=== PATIENT | male | born 1940 | race Caucasian/White ===

== ENCOUNTER 2025-01-14 22:46 | Emergency (ER) | payer OTHER ==
[2025-01-14] MEDS ORDERED: ASPIRIN 81 MG CHEWABLE TABLET ONE (23:27)
[2025-01-15 00:17] LABS: Absolute Basophils 0.1 K/uL (0-0.5); Absolute Eosinophils 0.2 K/uL (0-0.5); Absolute Lymphocytes (CBC) 1.8 K/uL (0.7-4.9); Absolute Monocytes 0.8 K/uL (0.1-1.3); Absolute Neutrophil 6.6 K/uL (1.8-8.0); Basophils % 0.8 % (0-1.3); Eosinophils % 1.6 % (0-4.4); Hematocrit 37.3 % (39.6-49.0); Hemoglobin 12.4 g/dL (13.6-17.9); Lymphocytes % 19.4 % (15.3-44.8); MCH 31.5 pg (27.0-35.0); MCHC 33.3 g/dL (32.0-36.0); MCV 94.4 fL (80-100); MPV 7.8 fL (7.6-11.3); Monocytes % 8.5 % (3.3-12.3); Neutrophils % 69.7 % (41.7-73.7); Nucleated Red Blood Cells % 0.1 % (0-0); Platelets 266 thou/uL (152-406); RBC Red Blood Cell Count 3.95 M/uL (4.33-5.43); Red Cell Distribution Width 15.6 % (12.1-15.2)
[2025-01-15 00:35] LABS: ALT/SGPT 21 U/L (16-61); AST/SGOT 17 U/L (15-37); Albumin 3.1 g/dL (3.4-5.0); Albumin/Globulin Ratio 0.9 (1.1-1.8); Alkaline Phosphatase 145 U/L (45-117); Anion Gap 8.5 mEq/L (5.0-15.0); BUN Blood Urea Nitrogen 38 mg/dL (7-18); Bicarbonate 31 mEq/L (21-32); Bilirubin Direct < 0.2 mg/dL (0-0.2); Bilirubin Indirect, Calculated 0.1 mg/dL (0.2-0.8); Bilirubin Total 0.3 mg/dL (0.2-1.0); Globulin 3.3 g/dL (2.3-3.5); Glomerular Filtration Rate 37 ml/min (=/>90); Glucose Level 330 mg/dL (74-106); Magnesium 1.7 mg/dL (1.6-2.4); NT PRO-BNP 1591 pg/mL (<450); Potassium 4.5 mEq/L (3.5-5.1); Protein, Total 6.4 g/dL (6.4-8.2); Sodium Level 138 mEq/L (136-145)
[2025-01-15 00:36] LABS: Troponin High Sensitivity 193.8 pg/mL (<58.9)
[2025-01-15] MEDS ORDERED: ALPRAZOLAM 0.25 MG TABLET PO PRN (00:38)
[2025-01-15] MEDS ORDERED: NITROGLYCERIN 0.4 MG/TAB SL PRN (00:38)
[2025-01-15] MEDS ORDERED: ACETAMINOPHEN 500 MG TAB PO PRN (00:38)
[2025-01-15] MEDS ORDERED: MORPHINE 4 MG/ML SYR IV PRN (00:38)
--- NOTE | 2025-01-15 00:44 | P.HP ---
Patient History Date of Service: 01/15/25 History of Present Illness: error Physical Examination - Studies Laboratory Data (last 24 hrs) 01/14/25 01/14/25 23:55 23:55 WBC 9.50 Hgb 12.4 L Hct 37.3 L Plt Count 266 Sodium 138 Potassium 4.5 BUN 38 H Creatinine 1.80 H Glucose 330 H Magnesium 1.7 Total Bilirubin 0.3 AST 17 ALT 21 Alkaline Phosphatase 145 H Assessment and Plan - Advance Directives Does patient have a Living Will: No Does patient have a Durable POA for Healthcare: No
--- NOTE | 2025-01-15 00:46 | ER ---
Nurse's Notes [facility] Name: Jose Garcia Jr Age: 84 yrs Sex: Male : 1940 Arrival Date: 01/14/2025 Time: 22:46 Bed 2 Private MD: Diagnosis: NSTEMI;Chronic kidney disease, unspecified;Type 2 diabetes mellitus with hyperglycemia;Presence of cardiac pacemaker Presentation: 01/14 23:05 Chief complaint: Patient states: chest pain that radiates to left shoulder an left side vc1 of jaw. Coronavirus screen: Client denies travel out of the [place] in the last 14 days. At this time, the client does not indicate any symptoms associated with coronavirus-19. Ebola Screen: Patient negative for fever greater than or equal to 101.5 degrees Fahrenheit, and additional compatible Ebola Virus Disease symptoms Patient denies exposure to infectious person. Patient denies travel to an Ebola-affected area in the 21 days before illness onset. No symptoms or risks identified at this time. Initial Sepsis Screen: Does the patient meet any 2 criteria? No. Patient's initial sepsis screen is negative. Does the patient have a suspected source of infection? No. Patient's initial sepsis screen is negative. Risk Assessment: Do you want to hurt yourself or someone else? Patient reports no desire to harm self or others. Onset of symptoms was 2100. Care prior to arrival: Medication(s) given: Nitroglycerin, 0.4 mg SL x 1. 23:05 Method Of Arrival: Ambulatory vc1 23:05 Acuity: CARLENE 3 vc1 Historical: - Allergies: 23:02 No Known Allergies; vc1 - PMHx: 23:02 Chronic obstructive lung disease; Hypertensive disorder; Diabetes mellitus; emphysemea; vc1 Asthma; high cholesterol; - PSHx: 23:02 Pace maker; cardiac stents; vc1 - Immunization history:: Client reports receiving the 2nd dose of the Covid vaccine, Flu vaccine is up to date. - Infectious Disease History:: Denies. - Social history:: Smoking status: Patient denies any tobacco usage or history of. Screenin:00 [facility] ED Fall Risk Assessment (Adult) History of falling in the last 3 months, ha1 including since admission No falls in past 3 months (0 pts) Confusion or Disorientation No (0 pts) Intoxicated or Sedated No (0 pts) Impaired Gait No (0 pts) Mobility Assist Device Used No (0 pt) Altered Elimination No (0 pt) Score/Fall Risk Level 0 - 2 = Low Risk Oriented to surroundings, Maintained a safe environment, Educated pt \T\ family on fall prevention, incl call for assistance when getting out of bed, Hourly rounding (assess needs \T\ fall precautionary measures) done. Abuse screen: Denies threats or abuse. Denies injuries from another. Nutritional screening: No deficits noted. Tuberculosis screening: No symptoms or risk factors identified. Assessment: 23:03 General: Appears uncomfortable, Behavior is calm, cooperative. Pain: Complains of pain ha1 in chest Pain radiates to left jaw Pain currently is 8 out of 10 on a pain scale. Quality of pain is described as aching, pressure, Pain began suddenly. Neuro: Level of Consciousness is awake, alert, obeys commands, Oriented to person, place, time, situation. Cardiovascular: Reports chest pain, Heart tones present Capillary refill < 3 seconds Patient's skin is warm and dry. Respiratory: Airway is patent Respiratory effort is even, unlabored, Respiratory pattern is regular, symmetrical. GI: No signs and/or symptoms were reported involving the gastrointestinal system. Abdomen is round obese. : No signs and/or symptoms were reported regarding the genitourinary system. Musculoskeletal: Circulation, motion, and sensation intact. 01/15 00:00 Reassessment: Patient and/or family updated on plan of care and expected duration. Pain ha1 level reassessed. Patient is alert, oriented x 3, equal unlabored respirations, skin warm/dry/pink. 01:00 Reassessment: Patient and/or family updated on plan of care and expected duration. Pain ha1 level reassessed. Patient is alert, oriented x 3, equal unlabored respirations, skin warm/dry/pink. 02:03 Reassessment: Patient and/or family updated on plan of care and expected duration. Pain ha1 level reassessed. Patient is alert, oriented x 3, equal unlabored respirations, skin warm/dry/pink. Patient states feeling better. Patient states symptoms have improved. 02:26 Reassessment: report given to YUMIKO Goldman. ha1 Vital Signs: 01/14 23:05 BP 119 / 76; Pulse 113; Resp 18; Temp 98.7; Pulse Ox 93% ; Weight 108.86 kg; Height 5 vc1 ft. 10 in. ; 01/15 01:00 BP 115 / 75; Pulse 102; Resp 18 S; Pulse Ox 95% on R/A; ha1 02:04 BP 158 / 90; Pulse 116; Resp 18 S; Pulse Ox 94% on R/A; ha1 01/14 23:05 Body Mass Index 34.44 (108.86 kg, 177.8 cm) vc1 ED Course: 01/14 22:49 Patient arrived in ED. gm2 22:52 [facility] kb 22:52 Les Mejias MD is Attending Physician. kb 22:55 Provided Education on: plan of care . Client placed on continuous cardiac and pulse ha1 oximetry monitoring. NIBP monitoring applied. athletic monitor on. 22:55 Patient has correct armband on for positive identification. Placed in gown. Bed in low ha1 position. Call light in reach. Side rails up X 1. Adult w/ patient. 23:07 Triage completed. vc1 23:07 Arm band placed on right wrist. vc1 23:55 XRAY Chest (1 view) In Process Unspecified. EDMS 01/15 00:00 Patient transferred, IV remains in place. Oxygen administration via nasal cannula \T\ ha1 2L/min. 01:06 initiated transfer with Carito \\ [facility]. kmf 01:59 pt was accepted to [facility] . Accepting Katelin Hillman \T\0123. Accepting admin km Carito Christianson \T\ 0123. pt will go to 4th floor bed A403. Number for nurse to nurse report [phone]. 02:06 Idania Ge, RN is Primary Nurse. ha1 02:30 No provider procedures requiring assistance completed. ha1 Administered Medications: 01/14 23:30 Drug: Aspirin PO Chewable Tablet 324 mg PO once; 81 mg tablets x 4 Route: PO; ha1 01/15 01:32 Drug: Heparin (NM-Bolus No thrombolytic) - HEParin IVP 60 units/kg IVP once; Max 5000 ha1 units {Co-Signature: vc1 (Shanda Wood RN).} Route: IVP; Site: right antecubital; 01:32 Drug: Heparin (NM Drip) 12 units/kg/[place] - ([place] [address] units, D5W IV 500 ml) IV at ha1 calculated rate Per protocol; Max initial rate 1000 units/hr {Co-Signature: 1 (Shanda Wood RN).} Route: IV; Rate: 1000 units/hr; Site: right antecubital; 01:32 Not Given (Patient Refused): [id number] mg PO once ha1 02:19 Drug: Insulin Regular Human IVP 7 units IVP once {Co-Signature: [email or web address] (Davis Brown RN).} Route: IVP; Site: left forearm; 02:19 Not Given (Physician Discretion): insulin [id number] units Sub-Q once ha1 02:19 Drug: Tessalon Perle PO 200 mg PO once Route: PO; ha1 02:30 Follow up: Response: No adverse reaction; Marked relief of symptoms ha1 02:20 Drug: Magnesium Sulfate IVPB 1 grams IVPB once over 1 hrs Route: IVPB; Infused Over: 1 ha1 hrs; Site: left forearm; Medication: 02:30 VIS not applicable for this client. ha1 Outcome: 00:46 ER care complete, transfer ordered by MD. valentino 02:30 Condition: stable ha1 02:30 Transferred by ground EMS Transfer form completed. X-rays sent w/ patient. Note: [address] [employer] [address] 02:30 Instructed on the need for transfer, Demonstrated understanding of instructions, 02:30 Patient left the ED. ha1 Signatures: Dispatcher [employer] EDMS Lisa Jha, SENIOR MARKETING ANALYST-C SENIOR MARKETING ANALYST-Ckb Shanda Wood RN RN vc1 Idania Ge RN RN ha1 Joann Baker [facility] Esther Pelayo [facility] Shanda Wood RN vc1 Davis Brown RN jb4 Corrections: (The following items were deleted from the chart) 02:50 02:40 Patient left the ED. vc1 ha1
--- NOTE | 2025-01-15 00:46 | EDPHYS ---
Physician Documentation [facility] Name: Jose Garcai Jr Age: 84 yrs Sex: Male : 1940 Arrival Date: 01/14/2025 Time: 22:46 Bed 2 Private MD: ED Physician Les Mejias HPI: 01/14 23:55 This 84 yrs old Male presents to ER via Ambulatory with complaints of Chest Pain, Arm kb Pain, Jaw Pain. 23:55 Patient is a 84-year-old male who presents for chest pain, left jaw pain and left upper kb arm pain. Patient states he woke up with the pain at 2100 this evening. States he checked his blood pressure and it was 180/123. Patient took a nitro that was previously prescribed to him, his chest pain resolved and his blood pressure decreased. States he currently has no pain.. Historical: - Allergies: 23:02 No Known Allergies; vc1 - PMHx: 23:02 Chronic obstructive lung disease; Hypertensive disorder; Diabetes mellitus; emphysemea; vc1 Asthma; high cholesterol; - PSHx: 23:02 Pace maker; cardiac stents; vc1 - Immunization history:: Client reports receiving the 2nd dose of the Covid vaccine, Flu vaccine is up to date. - Infectious Disease History:: Denies. - Social history:: Smoking status: Patient denies any tobacco usage or history of. ROS: 23:53 Constitutional: As per HPI kb Exam: 23:53 Constitutional: This is a well developed, well nourished patient who is awake, alert, kb and in no acute distress. Head/Face: Normocephalic, atraumatic. ENT: Moist Mucous membranes Cardiovascular: Regular rate Respiratory: Respirations even and unlabored. No increased work of breathing. Talking in full sentences Abdomen/GI: Soft, non-tender. No distention Skin: Warm, dry with normal turgor. Normal color. MS/ Extremity: Pulses equal, no cyanosis. Neurovascular intact. Full, normal range of motion. Neuro: Awake and alert, GCS 15, oriented to person, place, time, and situation. 23:55 ECG was reviewed by the Attending Physician. kb Vital Signs: 23:05 BP 119 / 76; Pulse 113; Resp 18; Temp 98.7; Pulse Ox 93% ; Weight 108.86 kg; Height 5 vc1 ft. 10 in. ; 01/15 01:00 BP 115 / 75; Pulse 102; Resp 18 S; Pulse Ox 95% on R/A; ha1 02:04 BP 158 / 90; Pulse 116; Resp 18 S; Pulse Ox 94% on R/A; ha1 01/14 23:05 Body Mass Index 34.44 (108.86 kg, 177.8 cm) vc1 MDM: 01/14 22:52 Medical Screening Exam initiated kb 23:53 Differential diagnosis: Arrhythmia, NH, COPD. Data reviewed: vital signs, nurses notes. kb Consideration of Admission/Observation Escalation of care including admission/observation considered. pt will be transferred. 01/15 00:44 Management of patient was discussed with the following: Billing Adjudicator: Dr Snell requests kb transfer. Historians other than the Patient: Spouse/Significant Other: spouse. Counseling: I had a detailed discussion with the patient and/or guardian regarding the historical points, exam findings, and any diagnostic results supporting the discharge/admit diagnosis, lab results, radiology results, the need to transfer to another facility, for higher level of care. 01/14 22:53 Order name: Basic Metabolic Panel; Complete Time: 00:37 kb 01/14 22:53 Order name: CBC with Diff; Complete Time: 00:22 kb 01/14 22:53 Order name: LFT's; Complete Time: 00:37 kb 01/14 22:53 Order name: Magnesium; Complete Time: 00:37 kb 01/14 22:53 Order name: NT PRO-BNP; Complete Time: 00:37 kb 01/14 22:53 Order name: PT-INR 01/14 22:53 Order name: Troponin HS; Complete Time: 00:37 kb 01/15 00:43 Order name: Troponin High Sensitivity EDMS 01/15 01:13 Order name: PTT, Activated Partial Thromb EDMS 01/14 22:53 Order name: XRAY Chest (1 view) kb 01/14 22:53 Order name: Cardiac monitoring; Complete Time: 23:16 kb 01/14 22:53 Order name: EKG - Nurse/Tech; Complete Time: 23:16 kb 01/14 22:53 Order name: IV Saline Lock; Complete Time: 23:16 kb 01/14 22:53 Order name: Labs collected and sent; Complete Time: 23:16 kb 01/14 22:53 Order name: O2 Per Protocol; Complete Time: 23:16 kb 01/14 22:53 Order name: O2 Sat Monitoring; Complete Time: 23:16 kb EC/15 23:55 Rate is 111 beats/min. Rhythm is regular. QRS Kell is Normal. OR interval is normal at kb 170 msec. QRS interval is normal at 150 msec. QT interval is prolonged at 505 msec. Administered Medications: 23:30 Drug: Aspirin PO Chewable Tablet 324 mg PO once; 81 mg tablets x 4 Route: PO; ha1 01/15 01:32 Drug: Heparin (NH-Bolus No thrombolytic) - HEParin IVP 60 units/kg IVP once; Max 5000 ha1 units {Co-Signature: vc1 (Shanda Wood RN).} Route: IVP; Site: right antecubital; 01:32 Drug: Heparin (NH Drip) 12 units/kg/[place] - ([place] [address] units, D5W IV 500 ml) IV at ha1 calculated rate Per protocol; Max initial rate 1000 units/hr {Co-Signature: vc1 (Shanda Wood RN).} Route: IV; Rate: 1000 units/hr; Site: right antecubital; 01:32 Not Given (Patient Refused): [id number] mg PO once ha1 02:19 Drug: Insulin Regular Human IVP 7 units IVP once {Co-Signature: jb4 (Davis Brown RN).} Route: IVP; Site: left forearm; 02:19 Not Given (Physician Discretion): insulin [id number] units Sub-Q once ha1 02:19 Drug: Tessalon Perle PO 200 mg PO once Route: PO; ha1 02:30 Follow up: Response: No adverse reaction; Marked relief of symptoms ha1 02:20 Drug: Magnesium Sulfate IVPB 1 grams IVPB once over 1 hrs Route: IVPB; Infused Over: 1 ha1 hrs; Site: left forearm; Disposition Summary: 01/15/25 00:46 Transfer Ordered Notes: Transfer Location: [facility] kb Reason: Higher level of care kb Condition: Stable kb Problem: new kb Symptoms: are unchanged kb Accepting Physician: (01/15/25 02:40) vc1 Diagnosis - NSTEMI kb - Chronic kidney disease, unspecified derek - Type 2 diabetes mellitus with hyperglycemia derek - Presence of cardiac pacemaker derek Forms: - Medication Reconciliation Form kb - SBAR form chicho Signatures: Dispatcher [employer] Abhijeet Lisa, TIP FIXER-Colt CAT-Les Massey MD MD cha Calcote, Vanessa RN RN vc1 Idania Ge RN RN ha1 Shanda Wood RN vc1 Davis Brown RN jb4 Corrections: (The following items were deleted from the chart) 01/14 22:53 22:53 Chest Single View+RAD.RAD.BRZ ordered. [facility] 01/15 00:45 04 23:53 Consideration of Admission/Observation Patient was admitted/placed on kb observation. Escalation of care including admission/observation considered. 01/15 00:45 01/14 23:53 Counseling: I had a detailed discussion with the patient and/or guardian chicho regarding the historical points, exam findings, and any diagnostic results supporting the discharge/admit diagnosis, lab results, radiology results, the need for further work-up and treatment in the hospital, chicho 01/15 00:45 00:32 Management of patient was discussed with the following: Hospitalist: Dr Emory valentino accepts pt for admission. chicho 01:07 PTT, ACTIVATED+COAG.LAB.BRZ ordered. [facility] : 00:43 CONS Physician Consult ordered. [facility] 00:43 Basic Metabolic Panel ordered. [facility] : 00:43 Basic Metabolic Panel ordered. [facility] : 00:43 Basic Metabolic Panel ordered. [facility] 00:43 Basic Metabolic Panel ordered. [facility] : 00:43 CBC with Automated Diff ordered. [facility] : 00:43 CBC with Automated Diff ordered. [facility] 00:43 CBC with Automated Diff ordered. [facility] 00:43 CBC with Automated Diff ordered. [facility] 00:43 Troponin High Sensitivity ordered. [facility] 01: 00:46 Dr chicho reed 02:40 01:22 Dr reed vc1
[2025-01-15 00:59] LABS: PT Prothrombin Time 11.7 SECONDS (10-13.0); Protime INR 1.03
[2025-01-15] MEDS ORDERED: CLOPIDOGREL 75 MG TABLET ONE (01:12)
[2025-01-15] MEDS ORDERED: HEPARIN 5000 UNIT/ML 1 ML VIAL ONE (01:12)
[2025-01-15] MEDS ORDERED: HEPARIN/D5W 25,000 UNIT/500 ML BAG IV ONE (01:12)
[2025-01-15 01:18] LABS: PTT, Activated Partial Thromb 27.5 SECONDS (27.2-37.4)
[2025-01-15] MEDS ORDERED: INSULIN REGULAR (HUMAN) 100 UNIT/ML ONE (02:11)
[2025-01-15] MEDS ORDERED: BENZONATATE 100 MG CAP PO ONE (02:11)
[2025-01-15] MEDS ORDERED: MAGNESIUM SULFATE 1 gm IVPB 1 GM/100 ML BAG IV ONE (02:12)
[2025-01-15 02:43] VITALS: TEMP 98.7
[2025-01-15 02:46] VITALS: BP 158/90; O2SAT 94
--- NOTE | 2025-01-15 05:51 | RAD REPORT ---
EXAM: XR Chest, 1 View CLINICAL HISTORY: The patient is 84 years old and is Male; CHEST PAIN TECHNIQUE: Frontal view of the chest. COMPARISON: No relevant prior studies available. FINDINGS: LUNGS: Unremarkable. No consolidation. PLEURAL SPACE: Unremarkable. No pneumothorax. HEART: Unremarkable. No cardiomegaly. MEDIASTINUM: Unremarkable. Normal mediastinal contour. BONES/JOINTS: Multilevel degenerative change of the spine is present. No acute fracture. VASCULATURE: Atherosclerosis of the aorta is present. TUBES, LINES AND DEVICES: Left-sided pacemaker is noted. UPPER ABDOMEN: Unremarkable as visualized. IMPRESSION: No acute cardiopulmonary process. Electronically signed by: Carlotta Jackson MD 01/15/2025 02:15 AM CDT RP Due to temporary technical issues with the PACS/[employer] reporting system, reports are being brendan d by the in-house radiologist without review as a courtesy to ensure prompt reporting the interpreting radiologist is fully responsible for the content of the report. Transcribed Date/Time: 01/15/2025 5:51 AM
[2025-01-15] MEDS ORDERED: ASPIRIN 325 MG TAB PO SCH (09:00)
[2025-01-15] MEDS ORDERED: METOPROLOL TAR 50 MG TAB PO SCH (09:00)
== END 2025-01-15 02:40 | disposition short-term general hospital (02) ==
LOC: ER 22:46
DX: I21.4 Non-ST elevation (NSTEMI) myocardial infarction (principal); E11.22 Type 2 diabetes mellitus with diabetic chronic kidney disease; E11.65 Type 2 diabetes mellitus with hyperglycemia; I12.9 Hypertensive chronic kidney disease with stage 1 through stage 4 chronic kidney disease, or unspecified chronic kidney disease; N18.9 Chronic kidney disease, unspecified; Z95.0 Presence of cardiac pacemaker; Z95.818 Presence of other cardiac implants and grafts; J44.9 Chronic obstructive pulmonary disease, unspecified; E78.00 Pure hypercholesterolemia, unspecified
CPT/HCPCS: 93005; 85025; 80048; 36415; 83735; 85610; 80076; 85730; 84484; 83880; 71045; J1644; J3475; J1815

== ENCOUNTER 2025-02-07 16:38 | Inpatient (IN) | payer OTHER ==
[2025-02-08] MEDS: INSULIN REGULAR (HUMAN) 100 UNIT/ML SQ SCH (16:30)
[2025-02-08] MEDS ORDERED: INSULIN LISPRO 100 UNIT/1 ML SQ SCH (17:00)
[2025-02-08] MEDS: PIPER TAZO 3.375 GM in NA CHLORIDE 0.9% 100 ML IV SCH (17:46)
[2025-02-08 18:52] LABS: Specific Gravity 1.014 (1.005-1.030); Urine Bilirubin NEGATIVE (Negative); Urine Blood Negative (Negative); Urine Clarity Clear (Clear); Urine Color Light-Yellow (Yellow); Urine Glucose NEGATIVE (Negative); Urine Ketones NEGATIVE (Negative); Urine Microscopic Reflex YN NO UMIC; Urine Nitrite NEGATIVE (Negative); Urine Protein NEGATIVE (Negative); Urine Urobilinogen Normal (Normal); Urine pH 5.5 (5.0-7.0)
[2025-02-08] MEDS: ALBUTEROL 2.5 MG/3 ML NEB SOL NEB SCH (19:00)
[2025-02-08] MEDS: IPRATROPIUM BROM 0.5MG/2.5ML NEB SCH (19:00)
[2025-02-08] MEDS: POLYETHYL GLY 3350 17 GM/DOSE PO SCH (20:00)
[2025-02-08] MEDS: ATORVASTATIN 40 MG TAB PO SCH (20:08)
[2025-02-08] MEDS: GABAPENTIN 300 MG CAP PO SCH (20:08)
[2025-02-08] MEDS: APIXABAN 2.5 MG TABLET PO SCH (20:09)
[2025-02-08] MEDS: INSULIN GLARGINE 100 UNIT/ML SQ SCH (20:09)
[2025-02-08] MEDS: ALBUTEROL 2.5 MG/3 ML NEB SOL NEB PRN (21:48)
[2025-02-08] MEDS: IPRATROPIUM BROM 0.5MG/2.5ML NEB PRN (21:49)
[2025-02-09 05:50] LABS: Absolute Basophils 0.1 K/uL (0-0.5); Absolute Eosinophils 0.4 K/uL (0-0.5); Absolute Lymphocytes (CBC) 1.9 K/uL (0.7-4.9); Absolute Neutrophil 4.3 K/uL (1.8-8.0); Basophils % 0.7 % (0-1.3); Hematocrit 26.6 % (39.6-49.0); Hemoglobin 8.8 g/dL (13.6-17.9); Lymphocytes % 25.3 % (15.3-44.8); MCH 30.6 pg (27.0-35.0); MCV 92.6 fL (80-100); MPV 6.9 fL (7.6-11.3); Monocytes % 13.2 % (3.3-12.3); Neutrophils % 55.8 % (41.7-73.7); Platelets 490 thou/uL (152-406); RBC Red Blood Cell Count 2.88 M/uL (4.33-5.43); Red Cell Distribution Width 14.6 % (12.1-15.2)
[2025-02-09] MEDS ORDERED: METOPROLOL XL 50 MG TAB PO SCH (06:00)
[2025-02-09 06:09] LABS: Anion Gap 6.2 mEq/L (5.0-15.0); Magnesium 1.9 mg/dL (1.6-2.4); Potassium 3.2 mEq/L (3.5-5.1); Prealbumin 10.7 mg/dL (20-40)
[2025-02-09] MEDS: PANTOPRAZOLE 40MG TABLET PO SCH (07:09)
--- NOTE | 2025-02-09 07:10 | RAD REPORT ---
EXAMINATION: ONE VIEW CHEST XR CLINICAL INDICATION: r/o aspiration pneumonia TECHNIQUE: Frontal chest projection is submitted. Examination is limited by patient positioning and t echnique. COMPARISON: 01/14/2025 FINDINGS: Moderate patchy airspace opacity is present left lower lung, likely pneumonia. The heart is moderatel y enlarged in size. Sternotomy wires. Pacer device. IMPRESSION: Moderate left lower lobe infiltrate/pneumonia.
[2025-02-09] MEDS: IPRATROPIUM BROM 0.5MG/2.5ML NEB SCH (08:00)
[2025-02-09] MEDS: ALBUTEROL 2.5 MG/3 ML NEB SOL NEB SCH (08:00)
[2025-02-09] MEDS: FUROSEMIDE 40 MG TABLET PO SCH (08:51)
[2025-02-09] MEDS: predniSONE 10 MG TAB PO SCH (08:52)
[2025-02-09] MEDS: METOPROLOL XL 50 MG TAB PO SCH (08:52)
[2025-02-09] MEDS: ASPIRIN 81 MG CHEWABLE TABLET PO SCH (08:53)
[2025-02-09] MEDS: TAMSULOSIN 0.4 MG SR CAP PO SCH (08:54)
[2025-02-09] MEDS: MONTELUKAST 10 MG TAB PO SCH (08:54)
[2025-02-09] MEDS: POTASSIUM 25 MEQ EFFERV TAB PO ONE ×2 (09:21→11:59)
--- NOTE | 2025-02-09 12:19 | P.HP ---
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 He had NSTEMI back in December of this year and was found to have multivessel CAD, transferred to [facility] for CABG evaluation. Now s/p CABG x 2 ALTAMIRANO-LAD and reverse SVG-PDA by Dr. Dior on 01/20/2025. Post op course was complicated by hypoxia, AMS, MICHAEL, delirium, episode of somnolence thought to be 2/2 combined effects of seroquel and oxycodone, MAT, and L moderate pleural effusion likely 2/2 ACB. He underwent L thoracentesis for pleural effusion on 02/05 and 1.3L removed by IR. Studies c/w exudate. Overall pleural studies were consistent with a post- thoracic surgery pleural effusion. His respiratory and cardiac status improved and stabilized over the course of his stay but still with cognitive impairment, physical deconditioning, debility. Patient was evaluated by PT and it was determined that he is able to tolerate therapy well and as a result of his functional decline and comorbid conditions, he would make a great candidate for aggressive inpatient rehabilitation where he can receive physical, occupational, and if need be speech therapy to help him return to his prior level of functioning and reduce risk of rehospitalization. He is now admitted to the unit for such therapy to help him reduce risk of rehospitalization and then return to prior level of functioning. Allergies No Known Allergies Allergy (Verified 02/08/25 16:07) Home Medications: Albuterol Inhaler [Ventolin Inhaler] 2 puff IH Q4H PRN 02/09/25 Albuterol Neb [Proventil 0.083% Neb Soln] 2.5 mg IH QID 02/09/25 Apixaban [Eliquis] 2.5 mg PO BID 02/09/25 Aspirin Chewable [Aspirin Chewable*] 81 mg PO DAILY 02/09/25 Atorvastatin Calcium [Lipitor] 40 mg PO BEDTIME 02/09/25 Furosemide [Lasix] 40 mg PO DAILY 02/09/25 Gabapentin [Neurontin] 300 mg PO TID 02/09/25 Insulin Glargine,Hum.rec.anlog [Semglee] 20 unit SQ BEDTIME 02/09/25 Ipratropium Neb [Atrovent Neb] 0.5 mg IH QID 02/09/25 Metoprolol Succinate [Toprol Xl] 50 mg PO DAILY 02/09/25 Montelukast [Singulair] 10 mg PO DAILY 02/09/25 Pantoprazole [Protonix Tab] 40 mg PO DAILY WITH BREAKFAST 02/09/25 Polyethyl Gly 3350 [Glycolax] 17 gm PO BID 02/09/25 Tamsulosin [Flomax] 0.4 mg PO BEDTIME 02/09/25 predniSONE [Deltasone] 10 mg PO DAILY 02/09/25 - Past Medical/Surgical History Has patient received pneumonia vaccine in the past: Yes Diabetic: Yes Past Medical History: Patient denies medical history -: Multivessel CAD s/p CABG x 2 ALTAMIRANO-LAD and reverse SVG-PDA 01/20/2025 -: COPD -: CHF (40-45%EF) -: peptic ulcer disease -: sarcoidosis (1.5-2L NC at home) -: Sick sinus syndrome s/p pacemaker -: BPH -: s/p CABG x 2 ALTAMIRANO-LAD and reverse SVG-PDA 01/20/2025 -: Pacemaker - Social History Smoking Status: Never smoker Alcohol use: No CD- Drugs: No Caffeine use: Yes Place of Residence: Home Review of Systems 10-point ROS is otherwise unremarkable Physical Examination - Vital Signs Temperature: 98.1 F Blood Pressure: 124/68 Pulse: 78 Respirations: 20 Pulse Ox (%): 98 - Studies Laboratory Data (last 24 hrs) 02/09/25 02/09/25 05:25 05:25 WBC 7.70 Hgb 8.8 L Hct 26.6 L Plt Count 490 H Sodium 145 Potassium 3.2 L BUN 16 Creatinine 1.01 Glucose 99 Magnesium 1.9 Assessment and Plan - Plan Current level of functioning: He presents with deficits in functional activity tolerance, dynamic standing balance, safety awareness (maintenance of sternal precautions) and safe ADL pe rformance Currently at minimal assistance with ambulation and rolling walker. Able to ambulate ~100 ft with RW and min A on 3L home oxygen. He does get SOB with exertion and needing frequent breaks. He is at minimal assistance with sit-stand transfers. He is at maximal assistance for standing balance and tolerance. He is alert, oriented, cooperative and able to follow commands. Previously was Independent with ADLs and Modified-independent ambulation w assistive device. Physical Exam: GEN: Alert, oriented, NAD CV: Regular rate and rhythm, no edema Pulm: Nonlabored respirations on 2L NC, clear bilaterally ABD: soft, nontender, nondistended Neuro: Normal speech, normal affect Integumentary: healing median sternotomy incision, without evidence of infxn. Rehab And Medical Assessment And Plan: Mr. Garcia is a 84-year-old patient, admitted to the rehabilitation unit with deficits in functional activity tolerance, dynamic standing balance, safety awareness (maintenance of sternal precautions) and safe ADL performance. Plan will be to do physical, occupational, and if need be speech therapy 3.5 hours, 5 of 7 days. He has a list of comorbid conditions that are noted and will continue home medications including Flomax for BPH, Glycolax as needed for constipation, Protonix for GI prophylaxis, peptic ulcer disease, metoprolol, aspirin, statin for CAD/HTN, nebulizers/inhalers for COPD, Gabapentin for neuropathy, Lasix for CHF, prednisone for COPD/, IV Zosyn for ~1 week. Comorbidities That Are Impacting Rehabilitation: Patient does have history of history of COPD with recent hypoxic episode associated with some shortness of breath worsened with exertion. He currently is requiring continuous oxygen supplementation which may limit his ability to work with Physical therapy, occupational therapy. He just recently underwent Left thoracentesis for pleural effusion on 02/05 and 1.3L removed by IR. He also demo nstrates physical deconditioning, debility with bilateral lower extremities, poor safety awareness. He does have poor safety awareness and just recently underwent CABG procedure a few weeks ago needing sternal precautions. Rehab Specific Plan: Mr. Garcia will have physical and occupational therapy 3 hours a day to improve his ability to transfer from a bed to a chair, to a wheelchair, to use a rolling walker to mobilize more than household distances, to get on and off the toilet, in and out of shower, to dress upper and lower body, to perform all activities of daily living well and to actually do those activities with safety awareness in mind to reduce the risk of falling and reduce chance of rehospitalizations. Mr. Garcia has a good understanding of the process of admission to the inpatient rehabilitation unit and how he will benefit from physical and occupational therapy. He will have 24 hours a day, 7 days a week, skilled rehabilitation and nursing, daily physician evaluation and management, and social services director evaluation and management for discharge planning, home equipment, and to follow up and continue with therapy after he is discharged. If need be, additional help will be sought from the hospitalist service. Barriers To Discharge: Currently, at 84 years old with COPD requiring continuous oxygen supplementation, he may require home oxygen to be setup prior to discharge if still needing oxygen and has not already been set up in the past. He does currently demonstrate poor safety awareness and is at risk for falling. He may require help of family as he goes home. Patient also noted to have an extensive list of chronic comorbidities which may require 24/7 nursing supervision/care given recent CABG with sternal precautions. If that is not available, 24 hours a day, we will recommend the patient go to group home if he is not able to do very well. However, the goal will be for him to go home and to thrive and do well and continue therapy via Home Health. Patient may need a shower chair, cane, walker, other DME supplies prior to discharge depending on how he does at rehab over the next few days. Length of stay: 5-7 days Dispo: Home, Prognosis: Good Code status: Full Rehab specific goals: 1) Patient will perform sit to stand/stand to sit Modified Independent- Patient completes the activity with device/additional time/safety concerns 2) Patient will ambulate at least 150 feet Modified Independent- Patient completes the activity with device/additional time/safety concerns, Rolling Walker or Least restrictive assistive device 3) Patient will independently demo liberalized sternal precautions throughout session. 4) Patient will complete grooming with, Modified Independent- Patient completes the activity with device/additional time/safety concerns. 5) Patient will complete upper extremity dressing with, Modified Independent- Patient completes the activity with device/additional time/safety concerns. 6) Patient will complete don/doff footwear with, Setup- [place] sets up or cleans up only. 7) Patient will complete toilet transfers with, Setup- [place] sets up or cleans up only. By signing this document, I acknowledge I personally performed a full physical examination on Mr. Garcia no later than 24 hours after his admission to the inpatient rehabilitation unit and determined that he is able to tolerate the above course of treatment at an intensive level for reasonable period of time. A detailed individualized plan of care for him will be completed by hospital day 4 based on the preadmission screen, history and physical, and therapy evaluations. - Advance Directives Does patient have a Living Will: No Does patient have a Durable POA for Healthcare: No Time Spent Managing Pts Care (In Minutes): 75
[2025-02-09] MEDS ORDERED: POLYETHYL GLY 3350 17 GM/DOSE PO PRN (15:09)
[2025-02-09] MEDS: BENZONATATE 100 MG CAP PO PRN (17:26)
[2025-02-09] MEDS: GLUCERNA SHAKE 237 ML CAN PO SCH (20:00)
[2025-02-09] MEDS: DOCUSATE NA/SENNA CONC 1 TAB PO SCH (21:19)
[2025-02-10 06:08] LABS: Anion Gap 4.2 mEq/L (5.0-15.0); Potassium 4.2 mEq/L (3.5-5.1)
[2025-02-10] MEDS: POTASSIUM CL SA 10 MEQ TAB PO SCH (07:50)
[2025-02-10] MEDS: FE SULF/FA/VIT B COMP & C TAB PO SCH (07:51)
[2025-02-10] MEDS: LIDOCAINE 4% PATCH TOP SCH (11:52)
[2025-02-10] MEDS ORDERED: D10W 125 ML IV PRN (14:09)
[2025-02-10] MEDS: NA CHLORIDE 0.9% 1,000 ML IV SCH (15:05)
--- NOTE | 2025-02-11 04:56 | PN ---
Date of Progress Note: 02/10/2025 Time Of Service: 1:20 p.m. Subjective: Mr. Garcia is resting comfortably in between therapy sessions. Able to communicate with appropriate responses to questions. Oriented to self and again follows instructions well. Objective: Denies any fevers, chills, nausea, vomiting. No significant myalgias or arthralgias. No rash. No active psychiatric issues. Physical Examination: Vital Signs: Blood pressure 125/60, pulse 96, respiratory rate 18, temperature 98.2, oxygen saturati on 95%. Weight 225 pounds, height 6 feet, BMI 30.5. General: Mr. Garcia is resting comfortably. HEENT: He is normocephalic, atraumatic. Sclerae anicteric. Oropharynx pink and moist. Neck: Supple. Chest: Mildly decreased breath sounds. Abdomen: Soft. Extremities: No significant clubbing, cyanosis, or edema. Neuromuscular: No new findings such as focal neurological deficits. Does have svan-hf-kzhyiiuz back pain. Multiple modalities will be used to address the back pain. Laboratory Studies: White blood cell count is 7.7, hemoglobin 8.8, platelets 490. Sodium 145, potas sium 4.2, chloride 107, carbon dioxide 38, BUN 40, creatinine 0.04, glucose ranged from 69 up to 321, calcium 8.0. Urinalysis completely normal from 02/08/2025. X-ray/imaging: Chest x-ray, done on 02/09/2025: There is moderate left lower lobe infiltrate versus pneumonia. There is pending procalcitonin and lactic acid; however, the patient's white blood cell count is completely normal. Neutrophils are normal at 55.8. He has not had a fever while hospitaliz ed and no evidence of toxicity. Urinalysis completely normal. The patient will be encouraged to use incentive spirometry, which is not currently in the room and nebulizer treatment to help with lung c learing and repeat chest x-ray will be done to evaluate the clearance of his potential infiltrate derek chi pneumonia. Progress Made With Physical, Occupational, And Speech Therapy: Today, with physical therapy, he did bed mobility exercises with moderate assistance. Could get on bed with maximum assistance. Complete d oso-se-rdvkn transfers with moderate assistance. Ambulated 40 feet with sonetdf-ym-rdgvicmp assist ance and mobilized wheelchair 50 feet with minimum assistance. Did have some orthostatic changes. W hile supine, blood pressure 128/67, pulse 85. While seated with compression stockings and abdominal binders, the blood pressure dropped to 98/57, heart rate 88. After 2 minutes of sitting, blood press ure 85/51 and after 3 minutes, 95/52, heart rate 87, oxygen saturation 92%. While standing, blood pr essure did go up to 108/58 and heart rate of 92. He was given IV fluids as he likely has mild dehydr ation. It is noted that he is on piperacillin/tazobactam for potential pneumonia, began on 5 to continue for 10 days. In terms of his therapy, will continue with physical, occupational, and s peech therapy 3.5 hours, 5 of 7 days. Please note that with his occupational therapy, he did require minimum assistance for transferring bed to chair and with sternal precautions adhered to. He is wor evita with speech and was given education. He verbalized understanding and will continue to be evalua dennise by Speech. Assessment And Plan: Mr. Garcia is an 84-year-old patient in rehabilitation unit with metabolic encep halopathy, for which he is improving moderately well. He still has decreased mobility, decreased phy sical functioning, shortness of breath, risk of deep vein thrombus and stroke. He has dyslipidemia. Cough is improving. Chest x-ray suggests possible pneumonia. He is on antibiotics IV for that. He has Lasix for fluid management, Glucerna for malnutrition, gabapentin for neuropathic pain, Semglee insulin for diabetes mellitus, Toprol-XL for heart rate and blood pressure control, Protonix for GE r eflux, and piperacillin/tazobactam 3.375 g in 100 mL every 8 hours. I will continue with Flomax for prostate hypertrophy, Senokot as for constipation, prednisone on board for adrenal insufficiency, pot assium 10 mEq daily for low potassium level. In terms of hand therapy, he will continue with all therapy as noted. LB/MODL Voice ID: [id number] Report ID: [id number]
[2025-02-11] MEDS: TRAMADOL HCL 50 MG TAB PO PRN (05:32)
[2025-02-11] MEDS: FUROSEMIDE 20 MG TABLET PO SCH (08:00)
[2025-02-11] MEDS: IPRATROPIUM BROM 0.5MG/2.5ML NEB SCH (19:15)
[2025-02-11] MEDS: ALBUTEROL 2.5 MG/3 ML NEB SOL NEB SCH (19:15)
[2025-02-11] MEDS ORDERED: MELATONIN 3 MG TABLET PO ONE (22:16)
[2025-02-11] MEDS: MELATONIN 3 MG TABLET PO PRN (22:17)
--- NOTE | 2025-02-11 23:02 | PN ---
Date of Progress Note: 02/11/2025 Time Of Service: 1:20 p.m. Subjective: Mr. Garcia is doing well, resting in the room in between therapy sessions. He has no new complaints and so far is happy with therapy. Objective: No fevers, chills, nausea, vomiting. No myalgias, arthralgias, rash, or other complaints . Physical Examination: Vital Signs: Blood pressure is 112/67, pulse 107, respiratory rate 18 to 20, temperature 98.0, oxyge n saturation 94%. Weight 225 pounds, height 6 feet, BMI 30.5. General: Mr. Garcia again resting comfortably, in no significant distress. HEENT: Normocephalic, atraumatic. Sclerae anicteric. Oropharynx moist. Neurologic: Again, significant improvement in awareness and cognitive functioning. Laboratory Studies: Blood sugars ranged from 84 up to 313. X-ray/imaging: No new x-rays or imaging. Progress Made With Physical And Occupational Therapy: With physical therapy, he did olf-nk-iosxq tra nsfers and jdrwq-bz-tylvh transfers with minimum assistance. He did standing for 2 to 3 minutes with contact guard to minimum assistance. Ambulated 40 feet 3 times, 50 feet once with minimal assistanc e using a rolling walker. He was up and down 5 steps with moderate assistance and mobilized a wheelc hair 70 feet twice and 80 feet with contact guard to minimum assistance. While seated, did have bloo d pressures of 101/51, pulse of 78, oxygent saturation 99%. After he did standing tolerance exercise and sitting, his blood pressure did improve to 111/60, but heart rate went up to about 163. He did rest again until heart rate decreased back to around 99. With his occupational therapy, he performed multiple sets of qyy-ib-mqmzw transfers from a recliner to wheelchair with minimum assistance. He d id again have some shortness of breath, which again is a limiting factor. He is working well with in centive spirometry. He was able to don and doff compression socks. Due to low blood pressure, abdom inal binder was in place and the patient did have gentle rehydration. Assessment: Mr. Garcia is an 84-year-old patient in rehabilitation unit with metabolic encephalopathy , decreased mobility, decreased physical functioning. He is on antibiotics, piperacillin/tazobactam and continued on Protonix for GE reflux, Hemocyte Plus for anemia. He has Singulair for allergies, m etoprolol for heart rate and blood pressure control, Semglee insulin 20 units at bedtime for diabetes mellitus, gabapentin 300 mg 3 times daily for neuropathic pain, Lasix 20 mg daily for fluid manageme nt, Glucerna for malnutrition, Tessalon Perles for cough, Lipitor for dyslipidemia, aspirin for strok e risk reduction, Eliquis 2.5 mg twice daily for DVT risk reduction, albuterol nebulizer for shortnes s of breath along with Ventolin inhaler and all those were continued and patient will continue therap y as noted. RASHI/NITESH Voice ID: [id number] Report ID: [id number]
[2025-02-12] MEDS: ALBUTEROL INHALER 200 PUFF/6.7 GM IH PRN (04:11)
[2025-02-12] MEDS ORDERED: IPRATROPIUM BROM 0.5MG/2.5ML NEB PRN (14:00)
[2025-02-12] MEDS ORDERED: ALBUTEROL 2.5 MG/3 ML NEB SOL NEB PRN (14:00)
[2025-02-12] MEDS: PIPER TAZO 3.375 GM in NA CHLORIDE 0.9% 100 ML IV SCH (20:15)
[2025-02-13 06:13] LABS: Absolute Eosinophils 0.4 K/uL (0-0.5); Absolute Lymphocytes (CBC) 1.8 K/uL (0.7-4.9); Absolute Monocytes 0.8 K/uL (0.1-1.3); Absolute Neutrophil 3.7 K/uL (1.8-8.0); Basophils % 0.2 % (0-1.3); Eosinophils % 6.6 % (0-4.4); Hematocrit 26.2 % (39.6-49.0); Hemoglobin 8.9 g/dL (13.6-17.9); Lymphocytes % 26.4 % (15.3-44.8); MCH 31.7 pg (27.0-35.0); MCV 93.3 fL (80-100); MPV 6.8 fL (7.6-11.3); Monocytes % 12.3 % (3.3-12.3); Neutrophils % 54.5 % (41.7-73.7); Platelets 476 thou/uL (152-406); RBC Red Blood Cell Count 2.81 M/uL (4.33-5.43)
[2025-02-13 06:43] LABS: Anion Gap 3.9 mEq/L (5.0-15.0); Magnesium 1.9 mg/dL (1.6-2.4); Potassium 3.9 mEq/L (3.5-5.1); Prealbumin 15.9 mg/dL (20-40)
[2025-02-13] MEDS: ALBUTEROL 2.5 MG/3 ML NEB SOL NEB SCH (07:25)
[2025-02-13] MEDS: IPRATROPIUM BROM 0.5MG/2.5ML NEB SCH (07:25)
[2025-02-13] MEDS: HYDROCODONE/APAP 5/325 MG TAB PO PRN (15:23)
[2025-02-13] MEDS: LIDOCAINE 4% PATCH TOP ONE (15:26)
[2025-02-13] MEDS: GABAPENTIN 300 MG CAP PO SCH (20:16)
--- NOTE | 2025-02-13 20:38 | PN ---
Date of Progress Note: 02/13/2025 Time Of Service: 1:20 p.m. Subjective: Mr. Garcia is resting comfortably. He is enjoying good therapy, bright sunshine everyday , and is oriented, follows commands appropriately. Objective: No fevers, chills, nausea, vomiting, myalgias, arthralgias. Physical Examination: Vital Signs: Blood pressure is 134/65, pulse 76, respiratory rate 18, temperature 98.1, oxygen satur ation 95%. General: Again, Mr. Garcia is in between therapy sessions, resting in bed. He is in no acute distres s. Neuro: He has no focal neurologic deficits. No new findings on examination. Laboratory Studies: White blood cell count 6.7, hemoglobin 8.9, platelets are 476. Sodium 142, pota ssium 3.9, chloride 106, carbon dioxide is 36, BUN 12, creatinine 0.82, glucose ranged from 150 to 17 8, calcium 8.2, magnesium 1.9, albumin 2.0, prealbumin 15.9. X-ray/imaging: No new x-rays or imaging. Medications: Medications have been reviewed. He is on albuterol nebulizer 2.5 mg every 6 hours as n eeded, gabapentin now 600 mg twice daily. He does have the lidocaine patch applied and Florence rodríguez also on board. Progress Made With Physical, Occupational, And Speech Therapy: With physical therapy today, he did c omplete bed mobility exercises with contact guard assistance, multiple ibf-nt-etnqb transfers and sta nd-to-pivot transfers with contact guard assistance as well. He did ambulate 20 feet and 100 feet wi th a rolling walker with contact guard assistance and mobilized a wheelchair 250 feet twice with cont act guard assistance and supervision. With occupational therapy, from wheelchair to recliner transfe r with contact guard assistance using a walker to turn and to pivot. Toileting done with minimum ass istance for clothing management and cues for activity pacing. He did have some orthostasis during e therapy sessions. Regarding speech today, he recalled 5 of 5 unrelated words after 5 and 10-minute delays. Cause and effect situations were described with 100% accuracy for improved problem-solving. He was 90% intelligible at conversational level using increased volume and decreased rate with over articulation. Assessment And Plan: Mr. Garcia is an 84-year-old patient in rehabilitation unit with metabolic encep halopathy from which he is recovering very well. He still has decreased mobility and decreased physi deborah functioning, but again improving. He does have pain overall. He has tramadol scheduled and in a ddition, Tylenol and now [place] started which he said he was taking for a long time for his back pain and he would be happy to have that reinstated. He was actually reinstated somewhat today. He has ne bulizers with albuterol and Ventolin. He has Eliquis for DVT prophylaxis, aspirin for stroke reducti on, Lipitor for dyslipidemia, Glucerna for his malnutrition. He has gabapentin for neuropathic pain, Semglee insulin for diabetes mellitus, melatonin for insomnia, Toprol for heart rate control, pipera cillin and tazobactam which the patient started on 02/12/2025 while in the hospital and continue 8 tr eatments. He has Flomax 0.4 mg daily for prostate hypertrophy, Senokot for constipation. He will co ntinue with physical, occupational, and speech therapy 3.5 hours, 5 of 7 days. LB/MODL Voice ID: [id number] Report ID: [id number]
[2025-02-14] MEDS: LIDOCAINE 4% PATCH TOP SCH (07:19)
--- NOTE | 2025-02-14 12:45 | RAD REPORT ---
EXAMINATION: ONE VIEW CHEST XR CLINICAL INDICATION: Male, 84 years old.,cough,pain TECHNIQUE: Frontal chest projection is submitted. Examination is limited by patient positioning and t echnique. COMPARISON: 02/09/2025 FINDINGS: Partial improvement of aeration in the left retrocardiac space with stable perihilar interstitial pro minence. Progressive mild streaky opacities in the right medial base. No pneumothorax or sizable effusion. Stable cardiomegaly. Mediastinal contours are unchanged. IMPRESSION: Mildly progressive right basilar streaky opacities could reflect atelectasis or pneumonia. Otherwise partial improvement of aeration in the left base, with table central interstitial prominenc e, suggesting improving congestion or edema.
--- NOTE | 2025-02-14 13:33 | P.RH.PN ---
Estimated Length of Stay: 11 Expected Discharge Date: 02/11/25 Discharge Disposition Plan: Home Family Support: Yes Detention Goal: Mobility, Transfers, Self Care Vital Signs: Last Vital Signs Temp 97.5 F 02/14/25 07:50 Pulse 80 02/14/25 08:20 Resp 20 02/14/25 08:20 BP 114/69 02/14/25 08:20 Pulse Ox 97 02/14/25 08:20 Laboratory: Laboratory Last Values WBC 6.70 thou/uL (4.3-10.9) 02/13/25 05:47 RBC 2.81 M/uL (4.33-5.43) L 02/13/25 05:47 Hgb 8.9 g/dL (13.6-17.9) L 02/13/25 05:47 Hct 26.2 % (39.6-49.0) L 02/13/25 05:47 MCV 93.3 fL (80-100) 02/13/25 05:47 MCH 31.7 pg (27.0-35.0) 02/13/25 05:47 MCHC 34.0 g/dL (32.0-36.0) 02/13/25 05:47 RDW 15.0 % (12.1-15.2) 02/13/25 05:47 Plt Count 476 thou/uL (152-406) H 02/13/25 05:47 MPV 6.8 fL (7.6-11.3) L 02/13/25 05:47 Neutrophils % 54.5 % (41.7-73.7) 02/13/25 05:47 Lymphocytes % 26.4 % (15.3-44.8) 02/13/25 05:47 Monocytes % 12.3 % (3.3-12.3) 02/13/25 05:47 Eosinophils % 6.6 % (0-4.4) H 02/13/25 05:47 Basophils % 0.2 % (0-1.3) 02/13/25 05:47 Absolute Neutrophils 3.7 K/uL (1.8-8.0) 02/13/25 05:47 Absolute Lymphocytes 1.8 K/uL (0.7-4.9) 02/13/25 05:47 Absolute Monocytes 0.8 K/uL (0.1-1.3) 02/13/25 05:47 Absolute Eosinophils 0.4 K/uL (0-0.5) 02/13/25 05:47 Absolute Basophils 0.0 K/uL (0-0.5) 02/13/25 05:47 Sodium 142 mEq/L (136-145) 02/13/25 05:47 Potassium 3.9 mEq/L (3.5-5.1) 02/13/25 05:47 Chloride 106 mEq/L (98-107) 02/13/25 05:47 Carbon Dioxide 36 mEq/L (21-32) H 02/13/25 05:47 Anion Gap 3.9 mEq/L (5.0-15.0) L 02/13/25 05:47 BUN 12 mg/dL (7-18) 02/13/25 05:47 Creatinine 0.82 mg/dL (0.70-1.30) 02/13/25 05:47 Est GFR (CKD-EPI) 87 ml/min (=/>90) L 02/13/25 05:47 Glucose 126 mg/dL (74-106) H 02/13/25 05:47 POC Glucose 123 mg/dL (65-120) H 02/14/25 12:05 Calcium 8.2 mg/dL (8.5-10.1) L 02/13/25 05:47 Magnesium 1.9 mg/dL (1.6-2.4) 02/13/25 05:47 Albumin 2.0 g/dL (3.4-5.0) L 02/13/25 05:47 Prealbumin 15.9 mg/dL (20-40) L 02/13/25 05:47 Prolactin 29.3 ng/mL () 02/10/25 14:01 Urine Color Light-yellow (Yellow) 02/08/25 17:58 Urine Clarity Clear (Clear) 02/08/25 17:58 Urine pH 5.5 (5.0-7.0) 02/08/25 17:58 Ur Specific [place] 1.014 (1.005-1.030) 02/08/25 17:58 Glucose (UA)(Auto) Negative (Negative) 02/08/25 17:58 Urine Ketones Negative (Negative) 02/08/25 17:58 Urine Blood Negative (Negative) 02/08/25 17:58 Urine Nitrite Negative (Negative) 02/08/25 17:58 Urine Bilirubin Negative (Negative) 02/08/25 17:58 Urine Urobilinogen Normal (Normal) 02/08/25 17:58 Ur Leukocyte Esterase Negative Steven/uL (Negative) 02/08/25 17:58 Urine Total Protein Negative (Negative) 02/08/25 17:58 Weight: 232 lb 11.2 oz Physician Update: Labs reviewed and are stable. Back pain is moderate in his c hest. He is completing Zosyn. Plan to D/C Monday with [employer]. Doing great BIMS 15, SLUMS 26. Met 4/4 STG with speech. Needs encouragement for sternal precautions. RW 85' x 3. Up and down 5 steps with mod assist. WC 250' with SBA. CGA for bed mobility and transfers. Will have chest x-ray and tesselon pearls for cough. Systolic blood pressures are better. Now meeting 4/6 STG, CGA for toileting, dressing and lower body dressing. Independent upper body dressing oral hygiene. Summary: Patient's care plan and fci goals have been reviewed and revised as necessary. Please see the Rehabilitation Signature page for all necessary signatures.
[2025-02-14] MEDS: BENZONATATE 100 MG CAP PO SCH (21:39)
[2025-02-14] MEDS: ALBUTEROL 2.5 MG/3 ML NEB SOL NEB PRN (23:13)
[2025-02-14] MEDS: IPRATROPIUM BROM 0.5MG/2.5ML NEB PRN (23:13)
[2025-02-15 05:17] VITALS: BMI 31.7
[2025-02-15] MEDS ORDERED: GLUCAGON 1 MG/VIAL IV PRN (06:31)
[2025-02-15] MEDS: GLUCAGON 1 MG/VIAL IM PRN (06:36)
[2025-02-15] MEDS ORDERED: INSULIN GLARGINE 100 UNIT/ML SQ ONE (18:06)
[2025-02-15] MEDS: INSULIN GLARGINE 100 UNIT/ML SQ SCH (20:35)
[2025-02-15] MEDS ORDERED: GUAIFENESIN/DM 5 ML UCUP PO PRN (23:37)
[2025-02-15] MEDS: GUAIFENESIN/DM 5 ML UCUP PO PRN (23:42)
--- NOTE | 2025-02-16 10:29 | RAD REPORT ---
EXAMINATION: Head Brain Wo Cont CLINICAL INDICATION: Male, 84 years old.r/o stroke TECHNIQUE: Axial CT images from the skull base to the vertex without intravenous contrast. Coronal an d sagittal reformatted images were created from the data set. One or more of the following dose reduction techniques were used: Automated exposure control, adjustment of the mA and/or kV according to patient size, and/or iterative reconstruction. Unless otherwise specified, incidental findings do not require dedicated imaging follow-up. [id number]. COMPARISON: No prior exam. FINDINGS: INTRACRANIAL: No acute intracranial hemorrhage. No hydrocephalus. No mass effect or midline shift. Sm all left parietal region infarct present is favored chronic remote cerebellar infarcts. Hypoattenuation at the left posterior insular region favored subacute or chronic..Moderate chronic sm all vessel ischemic changes. Mild age advanced cerebral atrophy. VASCULATURE: Intracranial atherosclerotic changes. SCALP/SKULL: No calvarial fracture identified. No acute soft tissue abnormality. SINUSES: The visualized paranasal sinuses are mostly clear. No significant mastoid fluid. IMPRESSION: Cerebral and cerebellar infarcts as noted above which are favored subacute and/or chronic. No prior i maging available for comparison. MRI could better establish acuity and exclude an acute infarct if indicated.
[2025-02-16] MEDS: ACETAMINOPHEN 500 MG TAB PO PRN (17:12)
--- NOTE | 2025-02-16 19:52 | RAD REPORT ---
EXAM: AP view(s) of the abdomen Abdomen 1 View (KUB) HISTORY: constipation COMPARISON: None FINDINGS: Nonobstructive bowel gas pattern.. Mild formed stool burden. No suspicious calcifications are seen. No acute osseous abnormality. Left hip arthroplasty. Fixation hardware at the pelvis. Fusion hardwar e in the lumbar spine. Sternotomy. Pacemaker. Other: n/a IMPRESSION: Nonobstructive bowel gas pattern. Low formed stool burden.
[2025-02-17] MEDS: ALBUTEROL 2.5 MG/3 ML NEB SOL NEB PRN (10:30)
[2025-02-17] MEDS: IPRATROPIUM BROM 0.5MG/2.5ML NEB PRN (10:30)
[2025-02-17] MEDS: NA CHLORIDE 0.9% 1,000 ML IV SCH (11:42)
[2025-02-17 11:46] LABS: Absolute Basophils 0.1 K/uL (0-0.5); Absolute Eosinophils 0.1 K/uL (0-0.5); Absolute Lymphocytes (CBC) 1.3 K/uL (0.7-4.9); Absolute Monocytes 0.7 K/uL (0.1-1.3); Absolute Neutrophil 7.3 K/uL (1.8-8.0); Eosinophils % 1.2 % (0-4.4); Hematocrit 29.2 % (39.6-49.0); Hemoglobin 9.7 g/dL (13.6-17.9); Lymphocytes % 13.6 % (15.3-44.8); MCH 31.3 pg (27.0-35.0); MCHC 33.1 g/dL (32.0-36.0); MCV 94.7 fL (80-100); MPV 6.8 fL (7.6-11.3); Monocytes % 7.5 % (3.3-12.3); Neutrophils % 76.7 % (41.7-73.7); Platelets 406 thou/uL (152-406); RBC Red Blood Cell Count 3.08 M/uL (4.33-5.43); Red Cell Distribution Width 15.4 % (12.1-15.2)
[2025-02-17 11:54] LABS: Anion Gap 6.5 mEq/L (5.0-15.0); Potassium 4.5 mEq/L (3.5-5.1)
--- NOTE | 2025-02-17 15:15 | RAD REPORT ---
EXAM: Chest Single View HISTORY: 84 years Male increase coughing COMPARISON: 02/14/2025 FINDINGS: LUNGS/PLEURA: Bilateral pleural effusions with hazy opacities in the central vascular prominence. CARDIAC/MEDIASTINUM: Moderate cardiomegaly. UPPER ABDOMEN: No significant abnormality. BONES: Sternotomy. No acute abnormality. LINES/TUBES/OTHER: Pacemaker present. IMPRESSION: Bilateral pleural effusions with hazy opacities bilaterally suspicious for pulmonary edema, less like ly though not excluded, pneumonia.
[2025-02-17] MEDS: ALBUTEROL INHALER 200 PUFF/6.7 GM IH PRN (20:19)
--- NOTE | 2025-02-18 02:11 | PN ---
Date of Progress Note: 02/17/2025 Time Of Service: 1:30 p.m. Subjective: Mr. Garcia is reporting some difficulty swallowing that has been intermittent. The swall owing was difficult in the morning and with pudding he is able to swallow okay. Seems to have a poss ibility of myasthenic type symptoms. Also, he had significantly low blood pressures and now midodrin e is on board. He was receiving also IV fluids. Chest x-ray done earlier today did suggest possibil ity of some increase fluids in the pleural space with pleural effusions and hazy opacities bilaterall y, again suspicious for pulmonary edema, likely though not excluded is a pneumonia. A head CT scan w as done yesterday as the patient had again some more difficulty swallowing again as intermittent. Th e CT scan of his head showed a subacute and chronic cerebral and cerebellar infarcts. A KUB study do ne on 02/16, showed a nonobstructive bowel gas pattern on low formed stool burden. Laboratory Studies: Did show white blood cell count of 9.7, and platelets 406, with his electrolyte panel showing normal sodium, potassium, chloride and BUN is normal at 11, creatinine 0.91, glucose ra nged from 115 to 260, calcium 8.6. Objective: Again, no fevers or chills, again mild shortness of breath, difficulty swallowing and dusty e mild myalgias and arthralgias. Physical Examination: Vital Signs: Blood pressure is 124/68, pulse 78, respiratory rate 18 to 20, temperature 98.1, oxygen saturation 98%. General: Mr. Garcia again is sitting in a chair, has intermittent difficulty with swallowing. He is now started on pyridostigmine again with midodrine and did receive some IV fluids. He is still dasha nuing to have Lasix now 40 mg daily to help with any potential volume overload. In addition, the com orbid condition medication have been continued including potassium replacement and nebulizer treatmen t, Ventolin inhaler and albuterol nebulizer. He has DVT prophylaxis on board, aspirin for stroke ris k reduction, Lipitor for dyslipidemia. Progress Made With Physical, Occupational, And Speech Therapy: With physical therapy today, bed mobi lity with contact guard assistance, multiple [id number] transfers and [id number] transfers with standby assistance. He did ambulate 150 feet and 100 feet with contact guard to standby assistance using a rolling walker. Also, he walked without an assistive device 10 feet twice with contact guard standby assistance. Mobilized a wheelchair 250 feet with supervision to modified independent. His oxygenation did maintain around 92%, but his blood pressures did drop to 90/59 with a heart rate of 7 4 while doing some of his exercises. With occupational therapy, he is able to don and doff socks usi ng the dressing stick and a sock aid, did so with supervision. Did do therapeutic exercises of the l ower extremities. With Speech, he recalled 3 of 5 unrelated words without visual cues after 3 minute s. Sixteen words were named for concrete category in 1 minute. Moderate verbal cues needed. Assessment: Mr. Garcia is an 84-year-old patient in the rehabilitation unit with metabolic encephalop athy from which he is improving well. He has decreased mobility, decreased physical function, dysart hria, dysphagia. He does have pyridostigmine on board. He has hypotension with some fluid in the bea ng. He is on diuretics while being gently hydrated and midodrine is on board. He does have a number of comorbid conditions in addition to his chronic obstructive pulmonary disease, shortness of breath , dyslipidemia, neuropathic pain, diabetes mellitus, insomnia, hypokalemia, and prostate hypertrophy. Plan: In terms of his plan, we will continue with physical, occupational, and speech therapy 3.5 winston rs, 5 of 7 days. Continue his list of medications. The patient will be followed for potential volum e overload with repeated chest x-ray. If need be, CT scan of the chest will be done. He is encourag ed to use incentive spirometry aggressively and again continue all therapy as noted and continue his current list of medications. LB/MODL Voice ID: [id number] Report ID: [id number]
[2025-02-18] MEDS: MIDODRINE HCL 5 MG TABLET PO SCH (06:48)
[2025-02-18] MEDS: PYRIDOSTIGMINE 60 MG TABLET PO SCH (08:04)
[2025-02-19] MEDS: DEXTROSE ORAL 40% 15 GM TUBE PO PRN (11:47)
[2025-02-19] MEDS ORDERED: INSULIN GLARGINE 100 UNIT/ML SQ ONE (18:09)
[2025-02-19] MEDS: INSULIN GLARGINE 100 UNIT/ML SQ SCH (20:02)
--- NOTE | 2025-02-19 21:47 | PN ---
Date of Progress Note: 02/19/2025 Time Of Service: 1:15 p.m. Subjective: Mr. Garcia is resting comfortably in bed. He did say he is having still difficulty swall owing, especially early in the morning, but by mid morning, he is able to swallow better. Pyridostig mine will be given early in the morning to help him start the patient's ability to swallow. Objective: Otherwise, again mild weakness which is diffuse, mild shortness of breath, mild difficult y swallowing, but that is improving and his confusion is also improving. Physical Examination: Vital Signs: Blood pressure 118/69, pulse 87, respiratory rate 20, temperature 98.2, oxygen saturati on 91%. General: Mr. Garcia is in bed. at the bedside. He is in no significant distress. Does report this swallowing issue is a big problem and obviously diffuse weakness in upper and lower extremities due to his metabolic encephalopathy and debility. Laboratory Studies: White blood cell count 9.5, hemoglobin 9.7, platelets 406. His blood sugars ear lier today around 11:45 in morning dropped down to 47 and within 30 minutes came up to 63 and subsequ ently within about 45 minutes to 138 and is currently 214. The patient's medication regimen was adju sted and Semglee insulin was decreased from 15 units at bedtime to 10 units at bedtime. The patient was encouraged to take a snack as well. X-ray/imaging: No new x-rays or imaging. Medications: Note, tramadol 50 mg at night, Flomax 0.4 mg daily, Senokot 1 twice daily, Mestinon 60 mg in the morning around 6 a.m., prednisone 10 mg daily, potassium 10 mEq daily, Protonix 40 mg daily , Hemocyte Plus 1 with breakfast, Singulair 10 mg daily, ProAmatine that is the midodrine for pressur e support 5 mg at 7 and 12, Toprol XL 50 mg daily, melatonin 3 mg at bedtime, lidocaine patch 2 twice daily, he has ipratropium nebulizer, Semglee insulin 10 units at bedtime, he has perphenazine for co ugh, gabapentin 60 mg twice daily, furosemide 20 mg daily, Glucerna 237 mL twice daily, he has Tessal on Perles 100 mg 3 times daily, Lipitor 4 mg at bedtime, aspirin 81 mg daily, Eliquis 2.5 mg twice da shahbaz, albuterol nebulizer, Ventolin nebulizer as well, and Soso 5/325 along with Tylenol. In terms of his ability to do therapy, today with physical therapy, he was able to ambulate 85 feet a nd 150 feet with contact guard assistance with rest breaks required. He mobilized a wheelchair 100 f eet with contact guard assistance. With occupational therapy, bed mobility and bed to wheelchair tra nsfer were done independently. He did don and doff footwear with independence, upper and lower body dressing also done independently. Did have to be reminded about sternal precautions when pulling davide n garments and wiping his buttocks. With speech, used problem-solving strategies for his ADLs and IA DLs with 90% accuracy. Auditory information was recalled with 80% accuracy and minimum assistance. Speech intelligibility was 95% at conversational level. Assessment: Mr. Garcia is an 84-year-old patient in the rehabilitation unit with metabolic encephalop athy from which he is recovering very well. He still has decreased mobility, decreased physical func tioning, significant difficulty with respiration and shortness of breath, COPD. He has dyslipidemia. Cough is improved. He has neuropathic pain, insomnia, hypertension, hypotension as well, orthostas is, and he is now on some Mestinon to help with his ability to swallow, his Flomax on board for prost ate hypertrophy. Plan: We will continue with physical, occupational, and speech therapy 3.5 hours, 5 of 7 days. LB/MODL Voice ID: [id number] Report ID: [id number]
[2025-02-20 06:13] LABS: Absolute Basophils 0.1 K/uL (0-0.5); Absolute Eosinophils 0.2 K/uL (0-0.5); Absolute Lymphocytes (CBC) 1.7 K/uL (0.7-4.9); Absolute Monocytes 0.9 K/uL (0.1-1.3); Absolute Neutrophil 3.8 K/uL (1.8-8.0); Basophils % 0.8 % (0-1.3); Eosinophils % 2.7 % (0-4.4); Hematocrit 27.5 % (39.6-49.0); Hemoglobin 9.1 g/dL (13.6-17.9); Lymphocytes % 25.8 % (15.3-44.8); MCH 31.3 pg (27.0-35.0); MCHC 33.2 g/dL (32.0-36.0); MCV 94.4 fL (80-100); MPV 6.5 fL (7.6-11.3); Monocytes % 14.1 % (3.3-12.3); Neutrophils % 56.6 % (41.7-73.7); Platelets 312 thou/uL (152-406); RBC Red Blood Cell Count 2.91 M/uL (4.33-5.43); Red Cell Distribution Width 15.8 % (12.1-15.2)
[2025-02-20] MEDS: PYRIDOSTIGMINE 60 MG TABLET PO SCH (06:14)
[2025-02-20 06:39] LABS: Albumin 2.1 g/dL (3.4-5.0); Anion Gap 2.7 mEq/L (5.0-15.0); Magnesium 2.1 mg/dL (1.6-2.4); Potassium 3.7 mEq/L (3.5-5.1)
[2025-02-20 06:43] LABS: Prealbumin 20.7 mg/dL (20-40)
--- NOTE | 2025-02-20 19:23 | P.CNS ---
Date of Consult: 02/20/25 Date of service02/20/2025 Reason for consult: Chest pain Primary team: Rehab Patient is a 84-year-old male with extensive cardiovascular history currently recovering in rehab. He has recent CABG last month with postop course complicated by left pleural effusion which was managed by thoracentesis. He also has a history of chronic systolic CHF. Medicine is consulted for acute chest pain. Patient is describing a left-sided chest pain radiating to his left jaw. He has mild shortness of breath. No lower extremity edema. EKG obtained does not show any ST elevation except lateral leads T wave inversions. Patient is currently on aspirin and Eliquis. Review of systemsa comprehensive review of system was conducted. Review of system unremarkable except for HPI above. Physical exam General: In mild distress HEENT: Head atraumatic/normocephalic. EOM intact Pulm: Lungs are clear to auscultation CVS: Normal S1-S2 Extremities: Without edema Skin: Warm and well-perfused Neuro: Grossly intact Psych: Mood and affect appropriate Labs: Blood glucose was 244 Reviewed labs from this morning. Unremarkable for the most part Assessment This is a 84-year-old male with extensive cardiovascular history currently recovering in rehab. Medicine is being consulted for chest pain. Chest pain Recent CABG Recent left thoracentesis Congestive heart failure QT prolongation Plan: Serial troponin negative Chest x-ray with evidence of pulmonary edema Patient given 1 dose of IV Lasix 40 mg Follow 2D echo Check magnesium and phosphorus Consult cardiology given high risk
[2025-02-20 20:05] LABS: Magnesium 1.9 mg/dL (1.6-2.4); Phosphorus 2.9 mg/dL (2.5-4.9); Troponin High Sensitivity 17.5 pg/mL (<58.9)
[2025-02-20] MEDS: ENSURE CLEAR 200 ML CAN PO SCH (20:11)
--- NOTE | 2025-02-20 20:20 | RAD REPORT ---
EXAMINATION: ONE VIEW CHEST XR CLINICAL INDICATION: Chest pain TECHNIQUE: Frontal chest projection is submitted. Examination is limited by patient positioning and t echnique. COMPARISON: 02/17/2025 FINDINGS: Moderate bilateral pulmonary opacities are present likely representing pulmonary edema. The heart is moderately enlarged in size. No displaced fractures identified. Lead pacer device present. Sternotomy wires are noted. IMPRESSION: Moderate CHF versus volume overload pattern.
[2025-02-20] MEDS: FUROSEMIDE 40 MG/4 ML VIAL IV ONE (21:01)
--- NOTE | 2025-02-20 22:57 | PN ---
Date of Progress Note: 02/20/2025 Time Of Service: 1:20 p.m. Subjective: Mr. Garcia has been mobilizing around the unit. He is feeling somewhat better today abou t his ability to oxygenate and mobilize, but still requiring oxygen via nasal cannula. Does fatigue very easily. Still complaining of swallowing difficulties, especially in the morning, which seem to improve by around 10:00 a.m. Pyridostigmine is given early in the morning and potentially is hopeful as the staff notes, he is swallowing somewhat easier, although patient subjectively is not clear he is improved. Review of Systems: He again mentions issues of swallowing and fatigue and has too many pills given at once and has actua lly been spaced out in the morning. Otherwise, no additional complaints. Physical Examination: Vital Signs: Blood pressure 140/76, pulse 91, respiratory rate 16, temperature 98.5, oxygen saturati on 95% to 100%. General: Mr. Garcia is wheeling around the unit in no acute distress. HEENT: He appears normocephalic and atraumatic. Sclerae anicteric. Lungs: He has fair air movements. Laboratory Studies: White blood cell count 6.7, hemoglobin 9.1, platelets 312. His . He had a phosphorus of 2.9, magnesium 1.7. Troponin 1 high 17.5. Glucose 242, sodium 141, potassium 3. 7, chloride 103, BUN 10, creatinine 0.8. Albumin 2.1. Magnesium 2.1 as well. There was a chest x-r ay done. The study shows moderate CHF versus volume overload pattern. Progress Made With Physical, Occupational, And Speech Therapy: Today with physical therapy, he compl eted gait training 80 feet, 125 feet, and 150 feet with contact guard standby assistance using a roll ing walker. He was able to go and down 7 steps with bilateral handrails with standby assistance. Be d mobility done with supervision and modified independence. With occupational therapy, self propelle d a wheelchair 250 feet with bilateral lower extremities forwards and backwards. Donning and doffing shoes independent. Did use 2 L of oxygen via nasal cannula. With speech, recalled 5 unrelated item s after 5-minute delay independently. Problem-solving skills with 80% accuracy moderate a ssistance to minimum assistance. Recalled 80% of details presented to him with 80% accuracy and mode rate assistance. Speech intelligibility was 70% with moderate assistance using speech strategies. Assessment: Mr. Garcia is an 84-year-old patient in rehabilitation unit with metabolic encephalopathy requiring treatments and has some difficulty with swallowing, but seemed to improve as th e day progresses. His medications have been spaced out and not all at once. He does have repeat felipe st x-ray showing the potential for volume overload, which the patient has had in CHF pattern. He anabelle l have some more diuretics on board. The hospitalist is assisting in the patient's care. He does kurtz ve additional comorbidities of decreased mobility, decreased physical functioning, dyslipidemia, coug h has improved. He does have mild malnutrition, neuropathic pain, diabetes mellitus, first hypertens ion, then episode of hypotension, and prostate hypertrophy. Plan: In terms of plan, we will continue with physical, occupational, and speech therapy. Continue with comorbid list of medications, which have been noted. The patient will be evaluated. He did hav e some chest pain earlier and EKG done rhythm. He does also have chest x-ray. The patien t will actually have a cardiology evaluation in the morning. He has cardiac enzymes on board being d one daily. RASHI/NITESH Voice ID: [id number] Report ID: [id number]
[2025-02-20 23:15] LABS: Troponin High Sensitivity 48.1 pg/mL (<58.9)
[2025-02-21] MEDS: CALCIUM CARB 500MG/VIT D 200 IU TAB PO SCH (08:31)
--- NOTE | 2025-02-21 12:42 | P.PN ---
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 No edema. EKG without ST elevations but noted lateral lead T wave inversions. Troponins negative x2. Monitor on telemetry No leukocytosis, Pro deborah negative, lactic acid wnl Echo with 55-60% EF, severe mitral annular calcification with mild mitral stenosis and mild mitral regurgitation, grade 1 diastolic dysfunction Cardiology consulted BNP 5k CXR (02/20): Moderate CHF vs volume overload Prior CXR (02/17): Bilateral pleural effusions with hazy opacities bilaterally suspicious for pulmonary edema s/p IV lasix x1 40 mg yesterday continue PO lasix 20 mg daily Continue home eliquis, aspirin, metoprolol, statin Continue other chronic home medications VTE: home eliquis Time Spent Managing Pts Care (In Minutes): 45
--- NOTE | 2025-02-21 13:04 | ECHO ---
HEIGHT: 6 ft 0 in WEIGHT: 230 lb 3.2 oz DATE OF STUDY: 02/21/[address]: Prince Sharon Artis MD 2-DIMENSIONAL: YES M.MODE: YES DOPPLER: YES COLOR FLOW: YES TDS: YES PORTABLE: YES DEFINITY: BUBBLE STUDY: DIAGNOSIS: CHEST PAIN CARDIAC HISTORY: CATHERIZATION: YES SURGERY: YES PROSTHETIC VALVE: NO PACEMAKER: YES MEASUREMENTS (cm) DIASTOLIC (NORMALS) SYSTOLIC (NORMALS) IVSd 1.1 (0.6-1.2) LA Diam 3.1 (1.9-4.0) LVEF 55-60% LVIDd 4.0 (3.5-5.7) LVIDs 2.8 (2.0-3.5) %FS 30% LVPWd 1.1 (0.6-1.2) Ao Diam 2.4 (2.0-3.7) 2 DIMENSIONAL ASSESSMENT: RIGHT ATRIUM: NORMAL LEFT ATRIUM: NORMAL RIGHT VENTRICLE: NORMAL LEFT VENTRICLE: NORMAL TRICUSPID VALVE: NORMAL MITRAL VALVE: SEVERE MITRAL ANNULAR CALCIFICATION WITH MILD MITRAL STENOSIS PULMONIC VALVE: NOT SEEN AORTIC VALVE: NORMAL PERICARDIAL EFFUSION: NONE AORTIC ROOT: NORMAL LEFT VENTRICULAR WALL MOTION: NORMAL DOPPLER/COLOR FLOW: SEE BELOW COMMENTS: 1. NORMAL LEFT VENTRICULAR EJECTION FRACTION 55-60% WITH NORMAL WALL MOTION 2. SEVERE MITRAL ANNULAR CALCIFICATION WITH MILD MITRAL STENOSIS AND MILD MITRAL REGURGITATION 3. GRADE I DIASTOLIC DYSFUNCTION TECHNOLOGIST: EARLINE VELAZQUEZ
--- NOTE | 2025-02-21 13:48 | P.RH.PN ---
Estimated Length of Stay: 15 Expected Discharge Date: 02/22/25 Discharge Disposition Plan: Home Family Support: Yes Long-Term Goal: Mobility, Transfers, Self Care Vital Signs: Last Vital Signs Temp 97.8 F 02/21/25 07:00 Pulse 80 02/21/25 08:33 Resp 20 02/21/25 07:00 BP 147/71 H 02/21/25 08:33 Pulse Ox 92 02/21/25 07:00 Laboratory: Laboratory Last Values WBC 6.70 thou/uL (4.3-10.9) 02/20/25 05:58 RBC 2.91 M/uL (4.33-5.43) L 02/20/25 05:58 Hgb 9.1 g/dL (13.6-17.9) L 02/20/25 05:58 Hct 27.5 % (39.6-49.0) L 02/20/25 05:58 MCV 94.4 fL (80-100) 02/20/25 05:58 MCH 31.3 pg (27.0-35.0) 02/20/25 05:58 MCHC 33.2 g/dL (32.0-36.0) 02/20/25 05:58 RDW 15.8 % (12.1-15.2) H 02/20/25 05:58 Plt Count 312 thou/uL (152-406) 02/20/25 05:58 MPV 6.5 fL (7.6-11.3) L 02/20/25 05:58 Neutrophils % 56.6 % (41.7-73.7) 02/20/25 05:58 Lymphocytes % 25.8 % (15.3-44.8) 02/20/25 05:58 Monocytes % 14.1 % (3.3-12.3) H 02/20/25 05:58 Eosinophils % 2.7 % (0-4.4) 02/20/25 05:58 Basophils % 0.8 % (0-1.3) 02/20/25 05:58 Absolute Neutrophils 3.8 K/uL (1.8-8.0) 02/20/25 05:58 Absolute Lymphocytes 1.7 K/uL (0.7-4.9) 02/20/25 05:58 Absolute Monocytes 0.9 K/uL (0.1-1.3) 02/20/25 05:58 Absolute Eosinophils 0.2 K/uL (0-0.5) 02/20/25 05:58 Absolute Basophils 0.1 K/uL (0-0.5) 02/20/25 05:58 D-Dimer 2.366 FEUug/mL (0-0.500) H 02/20/25 19:20 Sodium 141 mEq/L (136-145) 02/20/25 05:58 Potassium 3.7 mEq/L (3.5-5.1) 02/20/25 05:58 Chloride 103 mEq/L (98-107) 02/20/25 05:58 Carbon Dioxide 39 mEq/L (21-32) H 02/20/25 05:58 Anion Gap 2.7 mEq/L (5.0-15.0) L 02/20/25 05:58 BUN 10 mg/dL (7-18) 02/20/25 05:58 Creatinine 0.84 mg/dL (0.70-1.30) 02/20/25 05:58 Est GFR (CKD-EPI) 87 ml/min (=/>90) L 02/20/25 05:58 Glucose 149 mg/dL (74-106) H 02/20/25 05:58 POC Glucose 115 mg/dL (65-120) 02/21/25 11:33 Lactic Acid 1.5 mmol/L (0.4-2.0) 02/20/25 22:25 Calcium 7.9 mg/dL (8.5-10.1) L 02/20/25 05:58 Phosphorus 2.9 mg/dL (2.5-4.9) 02/20/25 19:20 Magnesium 1.9 mg/dL (1.6-2.4) 02/20/25 19:20 Troponin I High Sens 48.1 pg/mL (<58.9) 02/20/25 22:25 NT-Pro-B Natriuret Pep 5227 pg/mL (<450) H 02/20/25 22:25 Albumin 2.1 g/dL (3.4-5.0) L 02/20/25 05:58 Prealbumin 20.7 mg/dL (20-40) 02/20/25 05:58 Procalcitonin < 0.05 ng/mL (<0.50) 02/20/25 22:25 Calcitonin <2 pg/mL (<=10) 02/10/25 14:01 Prolactin 29.3 ng/mL () 02/10/25 14:01 Urine Color Light-yellow (Yellow) 02/08/25 17:58 Urine Clarity Clear (Clear) 02/08/25 17:58 Urine pH 5.5 (5.0-7.0) 02/08/25 17:58 Ur Specific [place] 1.014 (1.005-1.030) 02/08/25 17:58 Glucose (UA)(Auto) Negative (Negative) 02/08/25 17:58 Urine Ketones Negative (Negative) 02/08/25 17: Urine Blood Negative (Negative) 02/08/25 17:58 Urine Nitrite Negative (Negative) 02/08/25 17:58 Urine Bilirubin Negative (Negative) 02/08/25 17:58 Urine Urobilinogen Normal (Normal) 02/08/25 17:58 Ur Leukocyte Esterase Negative Steven/uL (Negative) 02/08/25 17:58 Urine Total Protein Negative (Negative) 02/08/25 17:58 Weight: 230 lb 3.2 oz Wound Present: No Closed Surgical Incision Present: No Negative Pressure Wound Therapy Present: No Physician Update: Labs reviewed and stable. He will be seen by Dr. Snell and make determination about possible discharge in the AM. His chest pain is better. He likely has reflux. Scored 30 on the SLUMS. He still has swallowing difficulty needs to work up out patient. Now [place] with his PT. SBP 118 down to 94, DBP 50 to 70. Walks 200' at best, up and down 12 steps. WC 250' with Issac. With OT his is at supervision. 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 Please see the Rehabilitation Signature page for all necessary signatures.
--- NOTE | 2025-02-21 15:19 | CON ---
Date of Consultation: 02/21/2025 Reason For Consultation: Chest pain. History Of Present Illness: This is an 84-year-old male with multivessel coronary artery disease sta tus post CABG, history of COPD, congestive heart failure, ejection fraction in the low 40s, enlarged prostate, hypertension. He is having a dynamic standing issue and balance issues. In December of this year, had a 2-vessel CABG by and he was sent for recovery and rehab. He had an episod e of chest pain yesterday that radiates to his neck and felt nauseated and reminded him with his ches t pain before he had the heart attack in early January. Denies having chest pain now. Feels well. Past Medical History: Coronary artery disease, COPD, CHF, hypertension, enlarged prostate. Medications: Refer reconciliation sheet for detailed list. Allergies: NO KNOWN DRUG ALLERGIES. Family History: No premature coronary artery disease or cancer. Social History: Does not smoke or drink. Does not use any drugs. Review of Systems: All systems reviewed and they are negative except as mentioned in the HPI. Physical Examination: Vital Signs: Reviewed. Head and Neck: Pupils are equal, reactive to light. Intact eye movements. No JVD. No cervical lym phadenopathy. Neck: Supple. Thyroid is not enlarged. Lungs: Clear to auscultation bilaterally. No crackles. No accessory muscle use. Heart: Irregular. No extra sounds. Abdomen: Soft, nontender. Bowel sounds positive. No organomegaly. No masses or hernia. No rigidit y or rebound. Extremities: No edema, clubbing, cyanosis. Intact pulses. Skin: No rash. No nodules. Neuro: Alert, awake, oriented x3. No acute focal deficits appreciated. Investigations: Troponin 17.5, the second one was 48.1, and that was yesterday. His BUN is 10, crea tinine 0.84. Hemoglobin is 9.1. Assessment/recommendation: 1. Chest pain. Negative troponin, doing more sets today. He is status post recent bypass done in . 2. Two-vessel disease. His cardiac enzymes have been negative, so I had another troponin and continu e baby aspirin, statin, and beta humaira. I recommend to do ischemia evaluation on him with a stress test, which can be done as an outpatient and echo showed normal ejection fraction with moderate MS a nd MRJeffry 3. MS and MR, mild to moderate. We will monitor. SR/MODL Voice ID: [id number] Report ID: [id number]
[2025-02-22 06:56] VITALS: TEMP 97.9
[2025-02-22 09:09] VITALS: O2SAT 96
--- NOTE | 2025-02-22 10:10 | P.PN ---
Date of Service: 02/22/25 Subjective: feeling better breathing comfortably on his home O2 settings Physical Exam: GEN: Alert, oriented, NAD CV: Regular rate and rhythm, no edema Pulm:Nonlabored respirations on 2L NC Neuro: Normal speech, normal affect Problem List: Chest pain Acute on chronic diastolic CHF exacerbation (55-60% EF) Multivessel CAD now s/p CABG x 2 ALTAMIRANO-LAD and reverse SVG-PDA (01/20/25) Left pleural effusion s/p recent thoracentesis (02/05/25) Severe mitral annular calcification with mild mitral stenosis Chronic COPD Peptic ulcer disease Sarcoidosis(~2L NC at home) BPH Hx sick sinus syndrome with pacemaker Hx QT prolongation Patient developed left-sided chest pain yesterday associated with mild SOB while at inpatient rehab. No edema. EKG without ST elevations but noted lateral lead T wave inversions. Troponins negative x2. Monitor on telemetry No leukocytosis, Pro deborah negative, lactic acid wnl Echo with 55-60% EF, severe mitral annular calcification with mild mitral stenosis and mild mitral regurgitation, grade 1 diastolic dysfunction Cardiology consult BNP 5k CXR (02/20): Moderate CHF vs volume overload Prior CXR (02/17): Bilateral pleural effusions with hazy opacities bilaterally suspicious for pulmonary edema s/p IV lasix x1 40 mg continue PO lasix 20 mg daily Continue home eliquis, aspirin, metoprolol, statin Continue other chronic home medications Cardiology recommending outpatient follow up for stress test No further cardiac work up warranted. VTE: Home eliquis Dispo: Slated for discharge today from inpatient rehab Time Spent Managing Pts Care (In Minutes): 45
[2025-02-22 10:36] VITALS: BP 96/52
--- NOTE | 2025-02-25 12:33 | EKG ---
Test Date: 2025-02-20 Test Time: 21:41:20 Truck Dispatcher: KJ MEASUREMENT RESULTS: Intervals: Rate: 81 DE: 194 QRSD: 148 QT: 418 QTc: 485 [place]: P: 48 DE: 194 QRS: 34 T: 214 INTERPRETIVE STATEMENTS: Normal sinus rhythm Possible Left atrial enlargement Left bundle branch block Abnormal ECG Compared to ECG 01/14/2025 22:57:40 Sinus tachycardia no longer present Electronically Signed On 02-25-25 12:25:13 CDT by Nelson Orantes
--- NOTE | 2025-02-26 11:18 | EKG ---
Test Date: 2025-02-20 Test Time: 18:16:22 Wire Rigger: MAZIN MEASUREMENT RESULTS: Intervals: Rate: 91 TX: 198 QRSD: 150 QT: 428 QTc: 526 [place]: P: 44 [place]: 198 QRS: 40 T: -12 INTERPRETIVE STATEMENTS: Normal sinus rhythm Left bundle branch block Abnormal ECG Compared to ECG 01/14/2025 22:57:40 Sinus tachycardia no longer present Electronically Signed On 02-26-25 11:14:48 CDT by Nelson Orantes
== END 2025-02-22 16:13 | disposition home health service (06) | DRG 70 ==
LOC: 5TH 02-08 16:00
PROVIDERS: ADMIT Psychiatry & Neurology Neurology with Special Qualifications in Child Neurology; ATTEND Psychiatry & Neurology Neurology with Special Qualifications in Child Neurology
DX: G93.41 Metabolic encephalopathy (principal); I50.33 Acute on chronic diastolic (congestive) heart failure; J18.9 Pneumonia, unspecified organism; E27.40 Unspecified adrenocortical insufficiency; E44.1 Mild protein-calorie malnutrition; I11.0 Hypertensive heart disease with heart failure; R53.81 Other malaise; R13.10 Dysphagia, unspecified; R47.1 Dysarthria and anarthria; R53.1 Weakness; M54.9 Dorsalgia, unspecified; R07.9 Chest pain, unspecified; E86.0 Dehydration; J44.9 Chronic obstructive pulmonary disease, unspecified; I25.10 Atherosclerotic heart disease of native coronary artery without angina pectoris; I49.5 Sick sinus syndrome; D86.9 Sarcoidosis, unspecified; E78.5 Hyperlipidemia, unspecified; K21.9 Gastro-esophageal reflux disease without esophagitis; K59.00 Constipation, unspecified; N40.0 Benign prostatic hyperplasia without lower urinary tract symptoms; E87.6 Hypokalemia; K27.9 Peptic ulcer, site unspecified, unspecified as acute or chronic, without hemorrhage or perforation; E11.40 Type 2 diabetes mellitus with diabetic neuropathy, unspecified; D64.9 Anemia, unspecified; R05.9 Cough, unspecified; G47.00 Insomnia, unspecified; R41.0 Disorientation, unspecified; I05.2 Rheumatic mitral stenosis with insufficiency; I95.1 Orthostatic hypotension; Z68.30 Body mass index [BMI] 30.0-30.9, adult; Z95.1 Presence of aortocoronary bypass graft; Z95.0 Presence of cardiac pacemaker
CPT/HCPCS: 36415; 70450; 71045; 74018; 80048; 81003; 82040; 82308; 82947; 83605; 83735; 83880; 84100; 84134; 84145; 84146; 84484; 85025; 85379; 92523; 93005; 93306; 94010; 94660; 97110; 97116; 97129; 97163; 97165; 97530; 97542; J1815; J1938; J2003; J2543; J7030; J7512; J7613; J7644